=== PATIENT | male | born 1950 | race Caucasian/White ===

== ENCOUNTER 2023-01-20 16:22 | Outpatient (CLI) | payer MEDICARE ==
[~2023-01-20 16:22] MED LIST: Iopamidol 370 76% 100 ML VIAL ONE
== END 2023-01-20 16:23 | disposition home or self-care (01) ==
LOC: NAV CT 16:22
PROVIDERS: ATTEND Family Medicine
DX: Z01.812 Encounter for preprocedural laboratory examination (principal); R59.0 Localized enlarged lymph nodes; R49.0 Dysphonia
CPT/HCPCS: 36415; 70491; 82565; Q9967